=== PATIENT | female | born 1945 | race Caucasian/White ===

== ENCOUNTER 2017-04-26 09:57 | Emergency (ER) | payer MEDICARE, OTHER ==
[~2017-04-26 09:57] MED LIST: CALCIUM 600 MG1 EACH PO; CO Q1060 MG PO; E-400400 UNIT PO; EXTRA STRENGTH500 MG PO; FISH OIL 1,0001 CA PO; INDERAL LA160 M1 PO; LEVOTHROID100 MCG PO; LEXAPRO20 MG PO; LEXAPRO5 M1 PO; MULTIVITAMIN1 TAB PO; NASONEX17 GM; NORCO 5/325 TAB1 TAB PO; STOOL SOFTENER1 EAC4 PO; TRILIPIX135 MG PO; TYLENOL EXTRA500 M1 PO; ULTRAM50 M1 PO; VITAMIN D1000 UNI1 PO; VITAMIN D5000 UNI1 PO; VITAMIN D5000 UNIT PO
[2017-04-26] MEDS ORDERED: LAMICTAL25 M2 PO (10:24)
[2017-04-26] MEDS ORDERED: LIPITOR40 M1 PO (10:24)
[2017-04-26] MEDS ORDERED: GLUCOPHAGE XR750 M1 PO (10:24)
[2017-04-26] MEDS ORDERED: FLONASE ALLERG9.9 ML (10:25)
[2017-04-26 10:33] LABS: BASO % 0.3 % (0-2); EOS % 2.3 % (0-7); EOSINOPHIL ABSOLUTE COUNT 0.2 tho/cmm (0.0-0.7); HCT-HEMATOCRIT 41.2 % (34.0-49.0); HGB-HEMOGLOBIN 13.9 gm/dl (12.0-15.5); IMMATURE GRANULOCYTES ABSOLUTE 0.04 tho/cmm (0-0.03); IMMATURE GRANULOCYTES PERCENT 0.5 % (0-0.3); LYMPH % 21.9 % (20-45); LYMPH ABSOLUTE COUNT 1.7 tho/cmm (0.8-4.5); MCH (MEAN CORPUSCULAR HGB) 30.5 pg (28.0-32.0); MCHC MEAN CORPUSCULAR HGB CONC 33.7 % (32.0-36.0); MCV (MEAN CELL VOLUME) 90.4 fl (82.0-96.0); MEAN PLATELET VOLUME 8.9 cmc (9.4-12.4); MONO % 4.9 % (0-12); MONOCYTE ABSOLUTE COUNT 0.4 tho/cmm (0.0-1.2); NEUTROPHIL ABSOLUTE COUNT 5.5 tho/cmm (1.6-8.0); NEUTROPHIL-AUTOMATED 5.5 tho/cmm (1.6-8.0); NEUTROPHILS % 70.1 % (40-80); PLATELET COUNT 236 tho/cmm (150-450); RED BLOOD COUNT 4.56 mil/cmm (4.00-5.20); RED CELL DISTRIBUTION WIDTH 13.1 % (12.4-16.4); WHITE BLOOD COUNT 7.8 tho/cmm (4.0-10.0)
[2017-04-26 10:46] LABS: ANION GAP 14 mmol/L (0-20); BLOOD UREA NITROGEN 14 mg/dl (6-24); CARBON DIOXIDE-VENOUS 27 mmol/L (22-32); CHLORIDE 104 mmol/l (96-110); CREATININE 0.89 mg/dl (0.50-1.10); GLUCOSE 154 mg/dL (70-110); SODIUM 141 mmol/L (135-145); eGFR VALUE FOR BLACK 74 mL/Min
[2017-04-26] MEDS ORDERED: MECLIZINE HCL25 M3 PO (11:31)
[2017-04-26] MEDS ORDERED: COMPAZINE10 MG PO (11:31)
== END 2017-04-26 11:44 ==
LOC: EDMED 09:57
PROVIDERS: Emergency Medicine
DX: R42 Dizziness and giddiness (principal); R11.2 Nausea with vomiting, unspecified; F41.9 Anxiety disorder, unspecified; E07.9 Disorder of thyroid, unspecified; Z90.710 Acquired absence of both cervix and uterus; Z98.890 Other specified postprocedural states; Z87.891 Personal history of nicotine dependence; Z79.890 Hormone replacement therapy; Z79.899 Other long term (current) drug therapy
CPT/HCPCS: J7030